=== PATIENT | female | born 1950 | race Caucasian/White ===

== ENCOUNTER 2020-01-15 15:14 | Outpatient (CLI) | payer OTHER, MEDICARE ==
[2020-01-15 15:38] LABS: INR-International Normal Ratio 2.6; Prothrombin Time 27.9 SEC (12.0-14.7)
== END 2020-01-15 15:15 | disposition home or self-care (01) ==
LOC: MADLAB 15:14
PROVIDERS: ATTEND Specialist
DX: I21.4 Non-ST elevation (NSTEMI) myocardial infarction (principal); I25.10 Atherosclerotic heart disease of native coronary artery without angina pectoris; E11.9 Type 2 diabetes mellitus without complications; I48.92 Unspecified atrial flutter
CPT/HCPCS: 85610

== ENCOUNTER 2020-01-18 11:33 | Outpatient (CLI) | payer OTHER, MEDICARE ==
[2020-01-18 12:03] LABS: INR-International Normal Ratio 3.1; Prothrombin Time 31.6 SEC (12.0-14.7)
== END 2020-01-18 11:34 | disposition home or self-care (01) ==
LOC: MADLAB 11:33
PROVIDERS: ATTEND Specialist
DX: I25.10 Atherosclerotic heart disease of native coronary artery without angina pectoris (principal); I48.92 Unspecified atrial flutter; E11.9 Type 2 diabetes mellitus without complications; I21.4 Non-ST elevation (NSTEMI) myocardial infarction; R26.81 Unsteadiness on feet
CPT/HCPCS: 85610

== ENCOUNTER 2020-01-25 11:13 | Outpatient (CLI) | payer OTHER, MEDICARE ==
[2020-01-25 13:51] LABS: Prothrombin Time 54.5 SEC (12.0-14.7)
[2020-01-25 14:26] LABS: INR-International Normal Ratio 6.2
== END 2020-01-25 11:14 | disposition home or self-care (01) ==
LOC: MADLAB 11:13
DX: Z51.81 Encounter for therapeutic drug level monitoring (principal); Z79.899 Other long term (current) drug therapy
CPT/HCPCS: 85610

== ENCOUNTER 2020-01-28 15:46 | Outpatient (CLI) | payer OTHER, MEDICARE ==
[2020-01-28 16:04] LABS: Prothrombin Time 30.7 SEC (12.0-14.7)
== END 2020-01-28 15:47 | disposition home or self-care (01) ==
LOC: MADLAB 15:46
PROVIDERS: ATTEND Specialist
DX: Z48.812 Encounter for surgical aftercare following surgery on the circulatory system (principal); Z51.81 Encounter for therapeutic drug level monitoring; I50.20 Unspecified systolic (congestive) heart failure; I21.4 Non-ST elevation (NSTEMI) myocardial infarction; I25.10 Atherosclerotic heart disease of native coronary artery without angina pectoris; I07.1 Rheumatic tricuspid insufficiency; Z79.01 Long term (current) use of anticoagulants
CPT/HCPCS: 36415; 85610

== ENCOUNTER 2020-02-05 11:54 | Outpatient (CLI) | payer OTHER, MEDICARE ==
[2020-02-05 12:08] LABS: INR-International Normal Ratio 2.7; Prothrombin Time 28.5 SEC (12.0-14.7)
== END 2020-02-05 11:55 | disposition home or self-care (01) ==
LOC: MADLAB 11:54
PROVIDERS: ATTEND Specialist
DX: Z51.81 Encounter for therapeutic drug level monitoring (principal); Z79.899 Other long term (current) drug therapy
CPT/HCPCS: 85610

== ENCOUNTER 2020-02-12 13:48 | Outpatient (CLI) | payer OTHER, MEDICARE ==
[2020-02-12 14:27] LABS: INR-International Normal Ratio 3.5; Prothrombin Time 34.6 SEC (12.0-14.7)
== END 2020-02-12 13:49 | disposition home or self-care (01) ==
LOC: MADLAB 13:48
PROVIDERS: ATTEND Specialist
DX: Z51.81 Encounter for therapeutic drug level monitoring (principal); Z79.899 Other long term (current) drug therapy
CPT/HCPCS: 85610

== ENCOUNTER 2020-03-10 07:21 | Outpatient (CLI) | payer OTHER, MEDICARE ==
[2020-03-10 08:01] LABS: INR-International Normal Ratio 2.9; Prothrombin Time 30.3 sec (12.0-14.7)
== END 2020-03-10 07:22 | disposition home or self-care (01) ==
LOC: MADLAB 07:21
DX: Z48.812 Encounter for surgical aftercare following surgery on the circulatory system (principal); Z98.890 Other specified postprocedural states
CPT/HCPCS: 36415; 85610

== ENCOUNTER 2020-03-17 07:09 | Outpatient (CLI) | payer OTHER, MEDICARE ==
[2020-03-17 07:37] LABS: Prothrombin Time 40.1 sec (12.0-14.7)
[2020-03-17 10:24] LABS: INR-International Normal Ratio 4.2
== END 2020-03-17 07:10 | disposition home or self-care (01) ==
LOC: MADLAB 07:09
DX: Z48.812 Encounter for surgical aftercare following surgery on the circulatory system (principal); Z98.890 Other specified postprocedural states
CPT/HCPCS: 85610

== ENCOUNTER 2020-03-24 07:15 | Outpatient (CLI) | payer MEDICARE, OTHER ==
[2020-03-24 07:54] LABS: INR-International Normal Ratio 3.2; Prothrombin Time 32.7 sec (12.0-14.7)
== END 2020-03-24 07:16 | disposition home or self-care (01) ==
LOC: MADLAB 07:15
DX: Z51.81 Encounter for therapeutic drug level monitoring (principal); Z98.890 Other specified postprocedural states; Z79.01 Long term (current) use of anticoagulants
CPT/HCPCS: 36415; 85610

== ENCOUNTER 2020-03-31 07:17 | Outpatient (CLI) | payer OTHER, MEDICARE ==
[2020-03-31 08:10] LABS: INR-International Normal Ratio 2.9
== END 2020-03-31 07:18 | disposition home or self-care (01) ==
LOC: MADLAB 07:17
DX: Z51.81 Encounter for therapeutic drug level monitoring (principal); Z98.890 Other specified postprocedural states; Z79.01 Long term (current) use of anticoagulants
CPT/HCPCS: 36415; 85610

== ENCOUNTER 2020-03-31 11:01 | Emergency (ER) | payer OTHER, MEDICARE ==
[2020-03-31] MEDS ORDERED: Adacel (T-DAP) 0.5 ML SYRINGE ONE (11:39)
--- NOTE | 2020-03-31 13:15 | CT ---
BRAIN CT WITHOUT IV CONTRAST: History: Injury from a fall. Patient on Coumadin. No loss of consciousness. FINDINGS: No focal mass or midline shift. No intra or extraaxial hemorrhage. Sinuses and mastoids are clear. IMPRESSION: No significant acute intracranial process. No mass or bleed. POS: [facility]
--- NOTE | 2020-03-31 13:16 | RAD ---
FOUR VIEWS RIGHT KNEE: Comparison: None History: Fall with right knee pain. FINDINGS: Four views of the right knee shows no evidence of acute fracture or dislocation. No knee effusion is seen. No soft tissue swelling is seen. No degenerative changes are present. IMPRESSION: No evidence of acute osseous abnormality. POS: [facility]
== END 2020-03-31 12:37 | disposition home or self-care (01) ==
LOC: MADERS 11:01
DX: S09.90XA Unspecified injury of head, initial encounter (principal); S83.91XA Sprain of unspecified site of right knee, initial encounter; S50.312A Abrasion of left elbow, initial encounter; I25.2 Old myocardial infarction; E11.9 Type 2 diabetes mellitus without complications; E78.5 Hyperlipidemia, unspecified; E78.00 Pure hypercholesterolemia, unspecified; I48.91 Unspecified atrial fibrillation; I11.0 Hypertensive heart disease with heart failure; I50.9 Heart failure, unspecified; F41.9 Anxiety disorder, unspecified; Z86.73 Personal history of transient ischemic attack (TIA), and cerebral infarction without residual deficits; W01.0XXA Fall on same level from slipping, tripping and stumbling without subsequent striking against object, initial encounter; Z79.899 Other long term (current) drug therapy
CPT/HCPCS: 36415; 70450; 85610; 90471; 90715

== ENCOUNTER 2020-04-07 06:58 | Outpatient (CLI) | payer OTHER, MEDICARE ==
[2020-04-07 07:36] LABS: INR-International Normal Ratio 3.3; Prothrombin Time 33.2 sec (12.0-14.7)
== END 2020-04-07 06:59 | disposition home or self-care (01) ==
LOC: MADLAB 06:58 → EDSTATUS 19:03
DX: Z48.812 Encounter for surgical aftercare following surgery on the circulatory system (principal); Z95.2 Presence of prosthetic heart valve
CPT/HCPCS: 36415; 85610

== ENCOUNTER 2020-04-14 07:32 | Outpatient (CLI) | payer OTHER, MEDICARE ==
[2020-04-14 07:57] LABS: INR-International Normal Ratio 2.3; Prothrombin Time 25.4 sec (12.0-14.7)
== END 2020-04-14 07:33 | disposition home or self-care (01) ==
LOC: MADLAB 07:32
DX: Z48.812 Encounter for surgical aftercare following surgery on the circulatory system (principal); Z95.2 Presence of prosthetic heart valve
CPT/HCPCS: 36415; 85610

== ENCOUNTER 2020-08-12 07:18 | Outpatient (CLI) | payer MEDICARE, BC ==
[2020-08-12 07:39] LABS: INR-International Normal Ratio 1.1
== END 2020-08-12 07:19 | disposition home or self-care (01) ==
LOC: MADLAB 07:18
DX: Z48.812 Encounter for surgical aftercare following surgery on the circulatory system (principal); Z98.890 Other specified postprocedural states
CPT/HCPCS: 36415; 85610

== ENCOUNTER 2020-08-19 12:07 | Outpatient (CLI) | payer MEDICARE, BC ==
[2020-08-19 12:29] LABS: INR-International Normal Ratio 2.7; Prothrombin Time 29.4 sec (12.0-14.7)
== END 2020-08-19 12:08 | disposition home or self-care (01) ==
LOC: MADLAB 12:07
PROVIDERS: ATTEND Internal Medicine
DX: Z48.812 Encounter for surgical aftercare following surgery on the circulatory system (principal); Z98.890 Other specified postprocedural states
CPT/HCPCS: 36415; 85610

== ENCOUNTER 2020-08-26 07:16 | Outpatient (CLI) | payer MEDICARE, BC ==
[2020-08-26 07:41] LABS: Prothrombin Time 41.6 sec (12.0-14.7)
[2020-08-26 08:30] LABS: INR-International Normal Ratio 4.2
== END 2020-08-26 07:17 | disposition home or self-care (01) ==
LOC: MADLAB 07:16
PROVIDERS: ATTEND Internal Medicine
DX: Z48.812 Encounter for surgical aftercare following surgery on the circulatory system (principal); Z95.2 Presence of prosthetic heart valve
CPT/HCPCS: 36415; 85610

== ENCOUNTER 2020-09-02 06:55 | Outpatient (CLI) | payer MEDICARE, BC ==
[2020-09-02 07:24] LABS: Prothrombin Time 56.6 sec (12.0-14.7)
[2020-09-02 09:53] LABS: INR-International Normal Ratio 6.2
== END 2020-09-02 06:56 | disposition home or self-care (01) ==
LOC: MADLAB 06:55
PROVIDERS: ATTEND Specialist
DX: Z48.812 Encounter for surgical aftercare following surgery on the circulatory system (principal); Z98.890 Other specified postprocedural states
CPT/HCPCS: 36415; 85610

== ENCOUNTER 2020-09-05 07:12 | Outpatient (CLI) | payer BC ==
[2020-09-05 07:41] LABS: INR-International Normal Ratio 1.9; Prothrombin Time 21.8 sec (12.0-14.7)
[2020-09-05 13:51] LABS: Follow-up Coag Comp? YES; Follow-up Result - Coag REPORT FAXED
== END 2020-09-05 07:13 | disposition home or self-care (01) ==
LOC: MADLAB 07:12
PROVIDERS: ATTEND Internal Medicine
DX: Z48.812 Encounter for surgical aftercare following surgery on the circulatory system (principal); Z95.2 Presence of prosthetic heart valve
CPT/HCPCS: 36415; 85610

== ENCOUNTER 2020-09-12 07:00 | Outpatient (CLI) | payer BC ==
[2020-09-12 08:23] LABS: INR-International Normal Ratio 1.8; Prothrombin Time 21.1 sec (12.0-14.7)
== END 2020-09-12 07:01 | disposition home or self-care (01) ==
LOC: MADLAB 07:00
PROVIDERS: ATTEND Internal Medicine
DX: Z48.812 Encounter for surgical aftercare following surgery on the circulatory system (principal); Z98.890 Other specified postprocedural states
CPT/HCPCS: 36415; 85610

== ENCOUNTER 2020-09-22 12:58 | Outpatient (CLI) | payer BC ==
[2020-09-22 13:24] LABS: INR-International Normal Ratio 3.3; Prothrombin Time 34.1 sec (12.0-14.7)
== END 2020-09-22 12:59 | disposition home or self-care (01) ==
LOC: MADLAB 12:58
PROVIDERS: ATTEND Internal Medicine
DX: Z48.812 Encounter for surgical aftercare following surgery on the circulatory system (principal); Z98.890 Other specified postprocedural states
CPT/HCPCS: 36415; 85610

== ENCOUNTER 2020-09-29 07:32 | Outpatient (CLI) | payer BC ==
[2020-09-29 08:52] LABS: INR-International Normal Ratio 4.3
== END 2020-09-29 07:33 | disposition home or self-care (01) ==
LOC: MADLAB 07:32
PROVIDERS: ATTEND Internal Medicine
DX: Z48.812 Encounter for surgical aftercare following surgery on the circulatory system (principal); Z98.890 Other specified postprocedural states
CPT/HCPCS: 36415; 85610

== ENCOUNTER 2020-10-13 07:18 | Outpatient (CLI) | payer BC ==
[2020-10-13 07:44] LABS: INR-International Normal Ratio 1.5; Prothrombin Time 18.6 sec (12.0-14.7)
== END 2020-10-13 07:19 | disposition home or self-care (01) ==
LOC: MADLAB 07:18
DX: Z48.812 Encounter for surgical aftercare following surgery on the circulatory system (principal)
CPT/HCPCS: 36415; 85610

== ENCOUNTER 2020-11-05 07:18 | Outpatient (CLI) | payer BC ==
[2020-11-05 10:13] LABS: Prothrombin Time 41.9 sec (12.0-14.7)
[2020-11-05 10:40] LABS: INR-International Normal Ratio 4.3
== END 2020-11-05 07:19 | disposition home or self-care (01) ==
LOC: MADLAB 07:18
PROVIDERS: ATTEND Internal Medicine
DX: Z48.812 Encounter for surgical aftercare following surgery on the circulatory system (principal); Z95.2 Presence of prosthetic heart valve
CPT/HCPCS: 36415; 85610

== ENCOUNTER 2020-12-25 14:29 | Outpatient (CLI) | payer BC ==
[2020-12-25 14:49] LABS: Hemoglobin 9.6 g/dL (12.0-16.0); Mean Corpuscular HGB CONC 32.9 g/dL (32.0-36.0); Mean Corpuscular Hemoglobin 30.6 pg (27.0-31.0); Mean Corpuscular Volume 92.8 fL (78.0-98.0); Platelet Count 174 thou/uL (130-400); RBC Distribution Width 13.7 % (11.5-14.5); Red Blood Cell (RBC) Count 3.14 mill/uL (4.20-5.40); White Blood Cell (WBC) Count 5.8 thou/uL (4.8-10.8)
[2020-12-25 15:19] LABS: Prothrombin Time 41.9 sec (12.0-14.7)
[2020-12-25 15:23] LABS: INR-International Normal Ratio 4.3
[2020-12-25 22:04] LABS: ALT (SGPT) 22 U/L (8-55); AST (SGOT) 22 U/L (5-34); Albumin 3.9 g/dL (3.4-4.8); Alkaline Phosphatase 54 U/L (40-110); Anion Gap 15 mmol/L (10-20); BUN (Urea Nitrogen) 25 mg/dL (9.8-20.1); Bilirubin, Total 0.5 mg/dL (0.2-1.2); Calc. Creatinine Clearance 0 mL/min (70-130); Calcium 8.9 mg/dL (7.8-10.44); Carbon Dioxide 23 mmol/L (23-31); Cardiac Risk 2.4 (Less than 4.5); Chloride 106 mmol/L (98-107); Cholesterol 142 mg/dl (< 200 Desired); Globulin 2.8 g/dL (2.4-3.5); Glucose 110 mg/dL (80-115); HDL Cholesterol 58 mg/dL (>60 Neg Risk); LDL Cholesterol, Calculated 64 mg/dL; Potassium 4.6 mmol/L (3.5-5.1); Protein, Total 6.7 g/dL (5.8-8.1); Sodium 139 mmol/L (136-145); Triglycerides 98 mg/dL (Less than 150)
== END 2020-12-25 14:30 | disposition home or self-care (01) ==
LOC: MADLAB 14:29
PROVIDERS: ATTEND Specialist
DX: I25.10 Atherosclerotic heart disease of native coronary artery without angina pectoris (principal); I10 Essential (primary) hypertension; I48.91 Unspecified atrial fibrillation; E78.2 Mixed hyperlipidemia; Z79.899 Other long term (current) drug therapy
CPT/HCPCS: 36415; 80053; 80061; 84443; 85027; 85610

== ENCOUNTER 2020-12-31 07:09 | Outpatient (CLI) | payer BC ==
[2020-12-31 08:31] LABS: INR-International Normal Ratio 2.9; Prothrombin Time 30.9 sec (12.0-14.7)
== END 2020-12-31 07:10 | disposition home or self-care (01) ==
LOC: MADLAB 07:09
PROVIDERS: ATTEND Specialist
DX: I48.91 Unspecified atrial fibrillation (principal)
CPT/HCPCS: 36415; 85610

== ENCOUNTER 2021-01-08 07:08 | Outpatient (CLI) | payer BC ==
[2021-01-08 07:36] LABS: INR-International Normal Ratio 3.4; Prothrombin Time 34.9 sec (12.0-14.7)
== END 2021-01-08 07:09 | disposition home or self-care (01) ==
LOC: MADLAB 07:08
PROVIDERS: ATTEND Specialist
DX: I48.91 Unspecified atrial fibrillation (principal)
CPT/HCPCS: 36415; 85610

== ENCOUNTER 2021-01-16 10:04 | Outpatient (CLI) | payer BC ==
[2021-01-16 10:37] LABS: INR-International Normal Ratio 3.8; Prothrombin Time 38.6 sec (12.0-14.7)
== END 2021-01-16 10:05 | disposition home or self-care (01) ==
LOC: MADLAB 10:04
PROVIDERS: ATTEND Specialist
DX: I48.91 Unspecified atrial fibrillation (principal)
CPT/HCPCS: 36415; 85610

== ENCOUNTER 2021-01-22 07:28 | Outpatient (CLI) | payer BC ==
[2021-01-22 07:51] LABS: INR-International Normal Ratio 3.8; Prothrombin Time 38.3 sec (12.0-14.7)
== END 2021-01-22 07:29 | disposition home or self-care (01) ==
LOC: MADLAB 07:28
PROVIDERS: ATTEND Specialist
DX: I48.91 Unspecified atrial fibrillation (principal)
CPT/HCPCS: 36415; 85610

== ENCOUNTER 2021-02-05 06:59 | Outpatient (CLI) | payer OTHER ==
[2021-02-05 08:00] LABS: INR-International Normal Ratio 3.9; Prothrombin Time 38.8 sec (12.0-14.7)
== END 2021-02-05 07:00 | disposition home or self-care (01) ==
LOC: MADLAB 06:59
PROVIDERS: ATTEND Specialist
DX: I48.91 Unspecified atrial fibrillation (principal)
CPT/HCPCS: 36415; 85610

== ENCOUNTER 2021-02-20 07:07 | Outpatient (CLI) | payer BC ==
[2021-02-20 08:00] LABS: Prothrombin Time 31.6 sec (12.0-14.7)
== END 2021-02-20 07:08 | disposition home or self-care (01) ==
LOC: MADLAB 07:07
DX: I48.91 Unspecified atrial fibrillation (principal); Z95.2 Presence of prosthetic heart valve
CPT/HCPCS: 36415; 85610

== ENCOUNTER 2021-02-27 06:54 | Outpatient (CLI) | payer BC ==
[2021-02-27 07:12] LABS: INR-International Normal Ratio 3.8
== END 2021-02-27 06:55 | disposition home or self-care (01) ==
LOC: MADLAB 06:54
PROVIDERS: ATTEND Specialist
DX: I48.91 Unspecified atrial fibrillation (principal)
CPT/HCPCS: 36415; 85610

== ENCOUNTER 2021-03-30 11:38 | Outpatient (CLI) | payer BC ==
[2021-03-30 12:12] LABS: INR-International Normal Ratio 3.1; Prothrombin Time 32.4 sec (12.0-14.7)
== END 2021-03-30 11:39 | disposition home or self-care (01) ==
LOC: MADLAB 11:38
PROVIDERS: ATTEND Specialist
DX: I48.91 Unspecified atrial fibrillation (principal); Z98.890 Other specified postprocedural states
CPT/HCPCS: 36415; 85610

== ENCOUNTER 2021-04-07 07:11 | Outpatient (CLI) | payer BC ==
[2021-04-07 08:13] LABS: INR-International Normal Ratio 3.6; Prothrombin Time 37.1 sec (12.0-14.7)
[2021-04-07 08:42] LABS: Hemoglobin 10.2 g/dL (12.0-16.0); Mean Corpuscular Hemoglobin 30.9 pg (27.0-31.0); Mean Corpuscular Volume 96.8 fL (78.0-98.0); Mean Platelet Volume 11.7 fL (7.4-10.4); Platelet Count 177 thou/uL (130-400); RBC Distribution Width 14.7 % (11.5-14.5); White Blood Cell (WBC) Count 5.8 thou/uL (4.8-10.8)
== END 2021-04-07 07:12 | disposition home or self-care (01) ==
LOC: MADLAB 07:11
PROVIDERS: ATTEND Specialist
DX: D64.9 Anemia, unspecified (principal)
CPT/HCPCS: 36415; 85027; 85610

== ENCOUNTER 2021-05-05 07:10 | Outpatient (CLI) | payer BC ==
[2021-05-05 07:45] LABS: INR-International Normal Ratio 2.3
== END 2021-05-05 07:11 | disposition home or self-care (01) ==
LOC: MADLAB 07:10
DX: I48.91 Unspecified atrial fibrillation (principal); Z95.2 Presence of prosthetic heart valve
CPT/HCPCS: 36415; 85610

== ENCOUNTER 2021-05-12 06:55 | Outpatient (CLI) | payer MEDICARE, BC ==
[2021-05-12 07:41] LABS: INR-International Normal Ratio 3.6; Prothrombin Time 36.8 sec (12.0-14.7)
== END 2021-05-12 06:56 | disposition home or self-care (01) ==
LOC: MADLAB 06:55
PROVIDERS: ATTEND Internal Medicine
DX: I48.91 Unspecified atrial fibrillation (principal)
CPT/HCPCS: 36415; 85610

== ENCOUNTER 2021-05-19 15:31 | Outpatient (CLI) | payer BC ==
[2021-05-19 15:56] LABS: INR-International Normal Ratio 3.7; Prothrombin Time 36.8 sec (12.0-14.7)
== END 2021-05-19 15:32 | disposition home or self-care (01) ==
LOC: MADERS 15:31
PROVIDERS: ATTEND Specialist
DX: I48.91 Unspecified atrial fibrillation (principal)
CPT/HCPCS: 36415; 85610

== ENCOUNTER 2021-06-09 06:44 | Outpatient (CLI) | payer BC ==
[2021-06-09 08:11] LABS: INR-International Normal Ratio 5.4
[2021-06-09 08:16] LABS: Prothrombin Time 49.9 sec (12.0-14.7)
== END 2021-06-09 06:45 | disposition home or self-care (01) ==
LOC: MADLAB 06:44
PROVIDERS: ATTEND Specialist
DX: I48.91 Unspecified atrial fibrillation (principal); D64.9 Anemia, unspecified; Z98.890 Other specified postprocedural states
CPT/HCPCS: 36415; 85610

== ENCOUNTER 2021-06-16 06:57 | Outpatient (CLI) | payer BC ==
[2021-06-16 07:39] LABS: INR-International Normal Ratio 1.6; Prothrombin Time 19.3 sec (12.0-14.7)
== END 2021-06-16 06:58 | disposition home or self-care (01) ==
LOC: MADLAB 06:57
PROVIDERS: ATTEND Specialist
DX: I48.91 Unspecified atrial fibrillation (principal); D64.9 Anemia, unspecified; Z98.890 Other specified postprocedural states
CPT/HCPCS: 36415; 85610

== ENCOUNTER 2021-06-23 07:50 | Outpatient (CLI) | payer BC ==
[2021-06-23 08:30] LABS: INR-International Normal Ratio 3.5; Prothrombin Time 35.6 sec (12.0-14.7)
== END 2021-06-23 07:51 | disposition home or self-care (01) ==
LOC: MADLAB 07:50
PROVIDERS: ATTEND Specialist
DX: I48.91 Unspecified atrial fibrillation (principal); Z98.890 Other specified postprocedural states
CPT/HCPCS: 36415; 85610

== ENCOUNTER 2021-07-03 10:59 | Outpatient (CLI) | payer BC ==
[2021-07-03 11:24] LABS: INR-International Normal Ratio 3.6
== END 2021-07-03 11:00 | disposition home or self-care (01) ==
LOC: MADLAB 10:59
PROVIDERS: ATTEND Specialist
DX: I48.91 Unspecified atrial fibrillation (principal)
CPT/HCPCS: 36415; 85610

== ENCOUNTER 2021-07-24 12:55 | Outpatient (CLI) | payer BC ==
[2021-07-24 13:53] LABS: INR-International Normal Ratio 2.1; Prothrombin Time 24.2 sec (12.0-14.7)
== END 2021-07-24 12:56 | disposition home or self-care (01) ==
LOC: MADLAB 12:55
PROVIDERS: ATTEND Specialist
DX: I48.91 Unspecified atrial fibrillation (principal)
CPT/HCPCS: 36415; 85610

== ENCOUNTER 2021-09-02 12:12 | Outpatient (CLI) | payer MEDICARE ==
[2021-09-02 13:06] LABS: Bilirubin Negative (Negative); Blood, Urine Small (Negative); Glucose, Urine (Dipstick) Negative (Negative); Ketone, Urine Negative (Negative); Leukocyte Negative (Negative); Nitrite Negative (Negative); Protein, Urine (Dipstick) 100 mg/dL (Neg-Trace); Urobilinogen 0.2 mg/dL (Less than 2); pH, Urine 5.5 (5.0-9.0)
[2021-09-02 13:09] LABS: Clarity Hazy (Clear)
[2021-09-02 13:12] LABS: #Basophils 0.1 thou/uL (0.0-0.2); #Eosinphils 0.2 thou/uL (0.0-0.7); #Lymphocytes 1.2 thou/uL (1.20-3.40); #Monocytes 0.6 thou/uL (0.11-0.59); #Neutrophils 5.6 thou/uL (1.40-6.50); %Basophils 0.7 % (0.0-1.0); %Eosinophils 2.3 % (0.0-10.0); %Lymphocytes 15.8 % (21.0-51.0); %Monocytes 8.2 % (0.0-10.0); %Neutrophils 73.1 % (42.0-75.0); Hemoglobin 9.3 g/dL (12.0-16.0); Mean Corpuscular HGB CONC 31.5 g/dL (32.0-36.0); Mean Corpuscular Volume 98.2 fL (78.0-98.0); Mean Platelet Volume 10.7 fL (7.4-10.4); Platelet Count 198 thou/uL (130-400); RBC Distribution Width 14.4 % (11.5-14.5); White Blood Cell (WBC) Count 7.7 thou/uL (4.8-10.8)
[2021-09-02 13:22] LABS: ALT (SGPT) 19 U/L (8-55); AST (SGOT) 17 U/L (5-34); Alkaline Phosphatase 51 U/L (40-110); Anion Gap 13 mmol/L (10-20); BUN (Urea Nitrogen) 40 mg/dL (9.8-20.1); Bilirubin, Total 0.4 mg/dL (0.2-1.2); Calc. Creatinine Clearance 0 mL/min (70-130); Calcium 9.2 mg/dL (7.8-10.44); Carbon Dioxide 23 mmol/L (23-31); Chloride 109 mmol/L (98-107); Globulin 2.6 g/dL (2.4-3.5); Glucose 107 mg/dL (83-110); Potassium 4.7 mmol/L (3.5-5.1); Protein, Total 6.6 g/dL (5.8-8.1); Sodium 140 mmol/L (136-145)
[2021-09-02 13:27] LABS: Bacteria/HPF Rare-Few HPF (None Seen); RBC/HPF 0-3 HPF (0-3); Squamous Epithelial 0-3 HPF (0-3); WBC/HPF 0-3 HPF (0-3)
[2021-09-02 13:35] LABS: Prothrombin Time 44.6 sec (12.0-14.7)
[2021-09-02 13:52] LABS: INR-International Normal Ratio 4.6
[2021-09-02 18:01] LABS: Hemoglobin A1c 6.2 % (4.0-6.0)
[2021-09-02 18:33] LABS: Ferritin 332.19 ng/mL (10-291); Vitamin D, 25 Hydroxy 24.6 ng/ml (> 30.0)
== END 2021-09-02 12:13 | disposition home or self-care (01) ==
LOC: MADLAB 12:12
PROVIDERS: ATTEND Specialist
DX: E11.65 Type 2 diabetes mellitus with hyperglycemia (principal); E55.9 Vitamin D deficiency, unspecified; N30.80 Other cystitis without hematuria; I48.20 Chronic atrial fibrillation, unspecified; D64.3 Other sideroblastic anemias
CPT/HCPCS: 36415; 80053; 81003; 81015; 82306; 82728; 83036; 83540; 84443; 85025; 85610; 87086

== ENCOUNTER 2021-10-08 07:22 | Outpatient (CLI) | payer BC ==
[2021-10-08 09:10] LABS: INR-International Normal Ratio 6.6
[2021-10-08 09:18] LABS: Prothrombin Time 59.2 sec (12.0-14.7)
== END 2021-10-08 07:23 | disposition home or self-care (01) ==
LOC: MADLAB 07:22
PROVIDERS: ATTEND Specialist
DX: I48.91 Unspecified atrial fibrillation (principal); D64.9 Anemia, unspecified; Z98.890 Other specified postprocedural states
CPT/HCPCS: 36415; 85610

== ENCOUNTER 2021-10-12 08:59 | Outpatient (CLI) | payer MEDICARE, OTHER ==
[2021-10-12 09:20] LABS: INR-International Normal Ratio 1.9; Prothrombin Time 22.1 sec (12.0-14.7)
== END 2021-10-12 09:00 | disposition home or self-care (01) ==
LOC: MADLAB 08:59
PROVIDERS: ATTEND Specialist
DX: I48.91 Unspecified atrial fibrillation (principal)
CPT/HCPCS: 36415; 85610

== ENCOUNTER 2021-10-26 14:06 | Outpatient (CLI) | payer MEDICARE ==
[2021-10-26 14:26] LABS: INR-International Normal Ratio 3.5
== END 2021-10-26 14:07 | disposition home or self-care (01) ==
LOC: MADLAB 14:06
PROVIDERS: ATTEND Specialist
DX: I48.91 Unspecified atrial fibrillation (principal)
CPT/HCPCS: 36415; 85610

== ENCOUNTER 2021-11-02 07:01 | Outpatient (CLI) | payer MEDICARE, OTHER ==
[2021-11-02 08:45] LABS: INR-International Normal Ratio 2.7; Prothrombin Time 29.3 sec (12.0-14.7)
== END 2021-11-02 07:02 | disposition home or self-care (01) ==
LOC: MADLAB 07:01
PROVIDERS: ATTEND Specialist
DX: I48.91 Unspecified atrial fibrillation (principal)
CPT/HCPCS: 36415; 85610